=== PATIENT | male | born 1960 | race Caucasian/White ===

== ENCOUNTER 2018-04-02 12:21 | Outpatient (CLI) | payer OTHER | END 2018-04-02 23:59 | disposition home or self-care (01) | LOC: RAD 12:21 | PROVIDERS: ATTEND Family Medicine | DX: M50.323 Other cervical disc degeneration at C6-C7 level (principal) | CPT/HCPCS: 72141; 72146 ==

== ENCOUNTER 2018-04-08 02:49 | Outpatient (CLI) | payer OTHER | END 2018-04-08 23:59 | disposition home or self-care (01) | LOC: RAD 02:49 | PROVIDERS: ATTEND Family Medicine | DX: M50.323 Other cervical disc degeneration at C6-C7 level (principal); M77.8 Other enthesopathies, not elsewhere classified; M25.78 Osteophyte, vertebrae; I71.2 Thoracic aortic aneurysm, without rupture | CPT/HCPCS: 72040; 72070 ==

== ENCOUNTER 2018-04-22 23:23 | Emergency (ER) | payer OTHER ==
[~2018-04-22] VITALS: Ht 172.7 cm; Wt 60.5 kg
[2018-04-22 23:26] VITALS: BP 135/88
== END 2018-04-23 00:23 | disposition home or self-care (01) ==
LOC: ER 23:23
DX: R91.8 Other nonspecific abnormal finding of lung field (principal); J44.9 Chronic obstructive pulmonary disease, unspecified; G89.29 Other chronic pain; M19.90 Unspecified osteoarthritis, unspecified site
CPT/HCPCS: 71046; 99284

== ENCOUNTER → 2018-08-08 | Outpatient (CLI) | payer OTHER ==
[2018-08-08 21:05] LABS: ALANINE AMINOTRANSFERASE 39 U/L (12-78); ALBUMIN 4.2 G/DL (3.4-5.0); ALBUMIN/GLOBULIN RATIO 1.2 (1.1-1.5); ALKALINE PHOSPHATASE 70 IU/L (46-116); ANION GAP 7 (8-16); ASPARTATE AMINO TRANSFERASE 40 U/L (10-37); BILIRUBIN,TOTAL 0.7 MG/DL (0.1-1.0); BLOOD UREA NITROGEN 31 MG/DL (7-18); BUN/CREATININE RATIO 22.1 (5.4-32.0); CALCIUM 9.1 MG/DL (8.5-10.1); CHLORIDE 102 MMOL/L (99-107); GLUCOSE 107 MG/DL (70-104); SODIUM 136 MMOL/L (135-145); TOTAL CARBON DIOXIDE 26.8 MMOL/L (24-32); TOTAL PROTEIN 7.7 G/DL (6.4-8.2); eGFR 52 ML/MIN
[2018-08-08 21:07] LABS: BASOPHILS # (AUTO) 0.1 X10'3 (0-0.2); BASOPHILS % (AUTO) 1.1 % (0-1); EOSINOPHILS # (AUTO) 0.1 X10'3 (0-0.9); EOSINOPHILS % (AUTO) 1.2 % (0-6); HEMATOCRIT 43.8 % (42.0-52.0); HEMOGLOBIN 15.1 g/dl (14.0-17.9); LYMPHOCYTES # (AUTO) 1.4 X10'3 (1.1-4.8); LYMPHOCYTES % (AUTO) 20.6 % (21-51); MEAN CORPUSCULAR HEMOGLOBIN 32.9 PG (27.0-31.0); MEAN CORPUSCULAR HGB CONC 34.5 g/dL (33.0-36.5); MEAN CORPUSCULAR VOLUME 95.4 FL (78-98); MEAN PLATELET VOLUME 7.9 FL (7.4-10.4); MONOCYTES # (AUTO) 0.4 X10'3 (0-0.9); MONOCYTES % (AUTO) 5.6 % (2-12); NEUTROPHILS # (AUTO) 4.8 X10'3 (1.8-7.7); NEUTROPHILS % (AUTO) 71.5 % (42-75); PLATELET COUNT 257 X10'3 (140-440); RED BLOOD COUNT 4.59 X10'6 (4.70-6.10); RED CELL DISTRIBUTION WIDTH 12.2 % (11.5-14.5); WHITE BLOOD COUNT 6.6 X10'3 (4.5-11.0)
[2018-08-10 08:19] LABS: THYROXINE (T4) 4.5 ug/dL (4.5-12.0)
== END | disposition home or self-care (01) ==
LOC: RAD 02:14
PROVIDERS: ATTEND Family Medicine
DX: M19.90 Unspecified osteoarthritis, unspecified site (principal); Z96.643 Presence of artificial hip joint, bilateral
CPT/HCPCS: 36415; 73080; 80053; 84402; 84403; 84436; 84443; 85025

== ENCOUNTER 2018-09-11 10:23 | Outpatient (CLI) | payer OTHER | END 2018-09-11 23:59 | disposition home or self-care (01) | LOC: VAS 10:23 | PROVIDERS: ATTEND Family Medicine | DX: I73.9 Peripheral vascular disease, unspecified (principal); Z96.643 Presence of artificial hip joint, bilateral; Z72.89 Other problems related to lifestyle | CPT/HCPCS: 93978 ==

== ENCOUNTER 2018-09-30 08:39 | Outpatient (CLI) | payer OTHER | END 2018-09-30 23:59 | disposition home or self-care (01) | LOC: VAS 08:39 | PROVIDERS: ATTEND Family Medicine | DX: I70.291 Other atherosclerosis of native arteries of extremities, right leg (principal); Z87.828 Personal history of other (healed) physical injury and trauma | CPT/HCPCS: 93922; 93925 ==

== ENCOUNTER 2018-10-15 08:45 | Outpatient (CLI) | payer OTHER | END 2018-10-15 23:59 | disposition home or self-care (01) | LOC: RAD 08:45 | PROVIDERS: ATTEND Family Medicine | DX: M47.812 Spondylosis without myelopathy or radiculopathy, cervical region (principal); M48.02 Spinal stenosis, cervical region; M40.292 Other kyphosis, cervical region | CPT/HCPCS: 72141 ==

== ENCOUNTER 2018-10-30 16:15 | Outpatient (CLI) | payer OTHER ==
[2018-10-30 18:39] LABS: RHEUM FACTOR QUAL REFLEX TITER NEGATIVE (Neg)
== END 2018-10-30 23:59 | disposition home or self-care (01) ==
LOC: LAB 16:15
PROVIDERS: ATTEND Family Medicine
DX: M19.90 Unspecified osteoarthritis, unspecified site (principal)
CPT/HCPCS: 36415; 84550; 85651; 86038; 86430

== ENCOUNTER 2018-11-10 08:45 | Outpatient (CLI) | payer OTHER | END 2018-11-10 23:59 | disposition home or self-care (01) | LOC: RAD 08:45 | PROVIDERS: ATTEND Family Medicine | DX: M51.36 Other intervertebral disc degeneration, lumbar region (principal); M51.27 Other intervertebral disc displacement, lumbosacral region; M48.07 Spinal stenosis, lumbosacral region; M41.86 Other forms of scoliosis, lumbar region | CPT/HCPCS: 72148 ==

== ENCOUNTER 2018-11-12 07:27 | Outpatient (CLI) | payer OTHER | END 2018-11-12 23:59 | disposition home or self-care (01) | LOC: RAD 07:27 | PROVIDERS: ATTEND Family Medicine | DX: M50.323 Other cervical disc degeneration at C6-C7 level (principal) | CPT/HCPCS: 72040 ==

== ENCOUNTER 2018-11-20 12:57 | Outpatient (CLI) | payer OTHER | END 2018-11-20 23:59 | disposition home or self-care (01) | LOC: 64 CT 12:57 | PROVIDERS: ATTEND Orthopaedic Surgery Orthopaedic Surgery of the Spine | DX: M48.061 Spinal stenosis, lumbar region without neurogenic claudication (principal); M51.36 Other intervertebral disc degeneration, lumbar region; M54.5 Low back pain | CPT/HCPCS: 72131 ==

== ENCOUNTER 2019-01-09 14:02 | Outpatient (CLI) | payer OTHER ==
[2019-02-24] MEDS ORDERED: PRED10TA PO (17:10)
[2019-02-24] MEDS ORDERED: VITAMIN D PO (17:10)
[2019-02-24] MEDS ORDERED: TRAM50TA2 PO (17:10)
[2019-02-24] MEDS ORDERED: TRAZ-219 PO (17:10)
[2019-02-24] MEDS ORDERED: META-25 PO (17:10)
[2019-02-24] MEDS ORDERED: ALBU8.5H8 INH (17:10)
[2019-02-24] MEDS ORDERED: LEVO175T7 PO (17:10)
[2019-02-24] MEDS ORDERED: LYR75C PO (17:10)
[2019-02-24] MEDS ORDERED: NABU750T2 PO (17:10)
[2019-02-26] MEDS ORDERED: CHOL100046 PO (11:25)
[2019-02-26] MEDS ORDERED: ALPR1TAB7 PO (12:37)
== END 2019-01-09 23:59 | disposition home or self-care (01) ==
LOC: LAB 14:02
PROVIDERS: ATTEND Family Medicine
DX: M19.90 Unspecified osteoarthritis, unspecified site (principal)
CPT/HCPCS: 36415

== ENCOUNTER 2019-02-13 13:23 | Outpatient (CLI) | payer OTHER ==
[2019-02-13 14:12] LABS: CLARITY,URINE CLEAR (Clear); COLOR,URINE YELLOW (Yellow); GLUCOSE, URINE NEGATIVE (Neg); KETONES,URINE NEGATIVE (Neg); LEUKOCYTE ESTERASE ,URINE NEGATIVE (Neg); NITRITES, URINE NEGATIVE (Neg); OCCULT BLOOD,URINE NEGATIVE (Neg); PH,URINE 6.5 (4.8-8.0); PROTEIN,URINE NEGATIVE (Neg); UROBILINOGEN,URINE 0.2 E.U/dL (0.2-1.0)
[2019-02-13 14:16] LABS: BASOPHILS % (AUTO) 0.7 % (0-1); EOSINOPHILS # (AUTO) 0.1 X10'3 (0-0.9); HEMATOCRIT 39.4 % (42.0-52.0); HEMOGLOBIN 13.6 g/dl (14.0-17.9); LYMPHOCYTES # (AUTO) 1.5 X10'3 (1.1-4.8); LYMPHOCYTES % (AUTO) 20.8 % (21-51); MEAN CORPUSCULAR HEMOGLOBIN 34.5 PG (27.0-31.0); MEAN CORPUSCULAR HGB CONC 34.6 g/dL (33.0-36.5); MEAN CORPUSCULAR VOLUME 99.7 FL (78-98); MEAN PLATELET VOLUME 8.1 FL (7.4-10.4); MONOCYTES # (AUTO) 0.6 X10'3 (0-0.9); MONOCYTES % (AUTO) 8.4 % (2-12); NEUTROPHILS # (AUTO) 4.8 X10'3 (1.8-7.7); NEUTROPHILS % (AUTO) 69.1 % (42-75); PLATELET COUNT 247 X10'3 (140-440); RED BLOOD COUNT 3.96 X10'6 (4.70-6.10); RED CELL DISTRIBUTION WIDTH 12.9 % (11.5-14.5)
[2019-02-13 14:30] LABS: UA COLLECTION TYPE NON-SPECIFIED
[2019-02-13 14:43] LABS: ALANINE AMINOTRANSFERASE 33 U/L (12-78); ALBUMIN 3.9 G/DL (3.4-5.0); ALBUMIN/GLOBULIN RATIO 1.3 (1.1-1.5); ALKALINE PHOSPHATASE 42 IU/L (46-116); ANION GAP 8 (8-16); ASPARTATE AMINO TRANSFERASE 26 U/L (10-37); BILIRUBIN,TOTAL 0.5 MG/DL (0.1-1.0); BLOOD UREA NITROGEN 23 MG/DL (7-18); BUN/CREATININE RATIO 17.8 (5.4-32.0); CALCIUM 8.9 MG/DL (8.5-10.1); CHLORIDE 104 MMOL/L (99-107); CHOL/HDL RATIO 1.9 (0.00-4.99); CHOLESTEROL 179 MG/DL (0-200); CREATININE 1.29 MG/DL (0.60-1.10); GLUCOSE 87 MG/DL (70-104); HDL CHOLESTEROL 95 MG/DL (35-60); LDL CHOLESTEROL 81 MG/DL (50-100); POTASSIUM 3.8 MMOL/L (3.5-5.1); SODIUM 140 MMOL/L (135-145); TOTAL CARBON DIOXIDE 27.7 MMOL/L (24-32); TOTAL PROTEIN 6.9 G/DL (6.4-8.2); TRIGLYCERIDES 16 MG/DL (20-135); eGFR 57 ML/MIN
[2019-02-24] MEDS ORDERED: VITAMIN D PO (17:10)
[2019-02-24] MEDS ORDERED: NABU750T2 PO (17:10)
[2019-02-24] MEDS ORDERED: TRAM50TA2 PO (17:10)
[2019-02-24] MEDS ORDERED: LYR75C PO (17:10)
[2019-02-24] MEDS ORDERED: META-25 PO (17:10)
[2019-02-24] MEDS ORDERED: PRED10TA PO (17:10)
[2019-02-24] MEDS ORDERED: TRAZ-219 PO (17:10)
[2019-02-24] MEDS ORDERED: ALBU8.5H8 INH (17:10)
[2019-02-24] MEDS ORDERED: LEVO175T7 PO (17:10)
[2019-02-26] MEDS ORDERED: CHOL100046 PO (11:25)
[2019-02-26] MEDS ORDERED: ALPR1TAB7 PO (12:37)
== END 2019-02-13 23:59 | disposition home or self-care (01) ==
LOC: RAD 13:23
PROVIDERS: ATTEND Family Medicine
DX: Z01.818 Encounter for other preprocedural examination (principal); M81.0 Age-related osteoporosis without current pathological fracture; M47.814 Spondylosis without myelopathy or radiculopathy, thoracic region
CPT/HCPCS: 36415; 71046; 80053; 80061; 81003; 85025

== ENCOUNTER 2019-02-27 06:46 | Inpatient (IN) | payer OTHER ==
[2019-02-24 11:32] LABS: PRE OP PROTIME 10.9 SECONDS (9.0-12.0)
[2019-02-27] VITALS (16 sets, daily range): BP systolic 92–129; BP diastolic 64–91
[~2019-02-27] VITALS: Ht 170.2 cm; Wt 74.4 kg
[~2019-02-27 06:46] MED LIST: ALBU8.5H8 INH; ALPR1TAB7 PO; CHOL100046 PO; LEVO175T7 PO; LYR75C PO; META-25 PO; NABU750T2 PO; PRED10TA PO; TRAM50TA2 PO; TRAZ-219 PO; Thrombin (Bovine) 5,000 unit vial TP ONE; VANCOMYCIN INJ 1000 MG in NORMAL SALINE 250ml IV.SOLN IV ONE; albuterol 2.5 MG/3 ML nebule NEB ONE; ceFAZolin 1000mg inj ONE; cefazolin/dext.iso 2gm/100 ML IV ONE; famotidine 20mg tablet PO ONE; gelatin sponge, absorbable (Gelfoam-100 compressed) sponge TP ONE; heparin 10,000 units/1 ML INJ ONE; ringers solution, lacted 1,000 ML IV SCH
[2019-02-27] MEDS ORDERED: methylene blue (5mg/ml) 50mg/10ml ampul IV ONE (07:07)
[2019-02-27] MEDS ORDERED: LIDOcaine 1% (10mg/ml) 2ml vial ONE (07:27)
[2019-02-27] MEDS ORDERED: ALPR-624 PO (07:38)
[2019-02-27] MEDS ORDERED: gelatin sponge, absorbable (Gelfoam 100) sponge TP ONE (08:12)
[2019-02-27] MEDS ORDERED: sevoflurane 250ml liquid IH ONE (08:32)
[2019-02-27] MEDS ORDERED: fentaNYL /PF 50mcg/ml 5ml ampule ONE ×2 (08:45)
[2019-02-27] MEDS ORDERED: MIDAZolam 5mg/5ml vial ONE (08:45)
[2019-02-27] MEDS ORDERED: dexamethasone sod phosphate 4mg/ml inj. ONE (09:13)
[2019-02-27] MEDS ORDERED: propofol inj 20 ML IV ONE (09:13)
[2019-02-27] MEDS ORDERED: LIDOcaine 2% (20mg/ml) 5ml vial ONE (09:13)
[2019-02-27] MEDS ORDERED: ondansetron/PF 4mg/2ml inj ONE (09:26)
[2019-02-27] MEDS ORDERED: rocuronium 10mg/ml inj IV ONE (09:38)
[2019-02-27] MEDS ORDERED: ringers solution, lacted 1,000 ML IV SCH (10:01)
[2019-02-27] MEDS ORDERED: proCHLORperazine 10 MG/2 ml inj IV PRN (10:05)
[2019-02-27] MEDS ORDERED: morphine 4 MG/ML inj SYRINge IV PRN (10:05)
[2019-02-27] MEDS ORDERED: ondansetron/PF 4mg/2ml inj IV PRN ×2 (10:05→15:55)
[2019-02-27] MEDS ORDERED: meperidine/PF 25mg/ml syringe IV PRN ×3 (10:05)
[2019-02-27] MEDS ORDERED: ceFAZolin 1000mg inj ONE (13:01)
[2019-02-27] MEDS ORDERED: meperidine/PF 50mg/ml syringe ONE (13:01)
[2019-02-27] MEDS: ceFAZolin 1000mg inj ONE ×2 (14:27→14:28)
[2019-02-27] MEDS ORDERED: pancuronium br 1mg/ml inj IV ONE (15:06)
[2019-02-27] MEDS ORDERED: acetaminophen 1,000mg/100ml IV 100 ML IV ONE (15:06)
[2019-02-27] MEDS ORDERED: non-formulary drug (Alprazolam 1 MG) PO PRN (15:45)
[2019-02-27] MEDS ORDERED: prednisone 10mg tablet PO PRN (15:45)
--- NOTE | 2019-02-27 15:50 | NUR ---
ADMITTED TO PACU FROM OR ACCOMPANIED BY ANESTHESIA. INTIAL PHYSICAL ASSESSMENT DONE AND RECORDED. AWAKE AND RESPONSE ON ARRIVE YO PACU, REPORT RECEIVED FROM ANESTHESIA.
[2019-02-27] MEDS ORDERED: naloxone 0.4 mg/ml inj IV PRN (15:55)
[2019-02-27] MEDS ORDERED: mag hydrox/Alum hydrox/simeth 30ml oral suspension PO PRN (15:55)
[2019-02-27] MEDS ORDERED: CADD PCA waste documentation MC PRN (15:55)
[2019-02-27] MEDS ORDERED: temazepam 15mg capsule PO PRN (15:55)
[2019-02-27] MEDS ORDERED: diphenhydrAMINE 50 mg/ml inj IV PRN (15:55)
[2019-02-27] MEDS ORDERED: oxyCODONE/APAP 10/325mg tablet PO PRN (15:55)
[2019-02-27] MEDS ORDERED: albuterol 2.5 MG/3 ML nebule NEB PRN ×2 (15:55→16:15)
[2019-02-27] MEDS ORDERED: bisacodyl 10mg suppository rectal RC PRN (15:55)
[2019-02-27] MEDS ORDERED: simethicone 125mg capsule PO PRN (15:55)
[2019-02-27] MEDS ORDERED: metoclopramide 5 mg/ml inj IV PRN (15:55)
[2019-02-27] MEDS ORDERED: magnesium hydroxide 30ml (MOM) UD suspension PO PRN (15:55)
[2019-02-27] MEDS: morphine 4 MG/ML inj SYRINge IV PRN ×2 (16:00→16:10)
--- NOTE | 2019-02-27 16:00 | NUR ---
MEDICATED FOR COMPLAINTS OF PAIN, ALSO COMPLAINING OF DECREASED MOTION LEFT LEG. DR. SEXTON NOTIFIED. DR SEXTON AT BEDSIDE TO EXAMINE. PORTABLE AP PELVIS COMPLETED, DR. SEXTON REVIEWED. NO ORDERS, BELIEVES DECREASED MOTION DUE TO POSITIONING.
[2019-02-27] MEDS: HYDROmorphone/NS 1 mg/ml CADD 50 ML IV SCH ×4 (16:42→23:00)
[2019-02-27] MEDS ORDERED: HYDROmorphone/NS 1 mg/ml CADD 50 ML IV SCH ×2 (17:00)
--- NOTE | 2019-02-27 17:00 | NUR ---
PACU DISCHARGE CRITERIA MET, REPORT GIVEN TO FLOOR. DENIES PAIN OR DISCOMFORT, TRANSFERRED TO ROOM IN STABLE GOOD CONDITION.
--- NOTE | 2019-02-27 17:30 | NUR ---
I called Dr. Olvera for eye drops for patient, Dr Olvera also ordered IV and po valium 5 mg q4hr for spasms, and aqua tears.
[2019-02-27] MEDS ORDERED: diazepam inj 5 MG/ML inj. IV PRN (17:40)
[2019-02-27] MEDS: normal saline 1000ml 1,000 ML IV SCH (17:59)
[2019-02-27] MEDS: polyvinyl alcohol ophthalmic drops 15ml bottle EACHEYE PRN ×2 (17:59→20:55)
[2019-02-27] MEDS: ceFAZolin 1GM/D5W- ADD-VANTAGE 50 ML IV SCH ×2 (18:09→23:48)
--- NOTE | 2019-02-27 18:20 | NUR ---
I called Dr. Olvera to report patient having numbness on the right top of his head, I told him patient doesn't have any other neuro deficits other than the left leg weakness which was previously noted by Dr. Olvera after surgery. Dr. Olvera said cont/ to monitor head numbness and neuro checks and he thinks the numbness will resolve.
--- NOTE | 2019-02-27 18:55 | NUR ---
patient report given to Garcia AYALA
--- NOTE | 2019-02-27 19:00 | NUR ---
Patient in room ORTHO 4016. I have received report from Jenniffer AYALA and had the opportunity to ask questions and assume patient care.
[2019-02-27] MEDS: vancomycin/NS 1 GM ADD-VANTAGE 250 ML IV SCH (20:49)
[2019-02-27] MEDS: pregabalin 75mg capsule PO SCH (20:49)
[2019-02-27] MEDS ORDERED: traZODone 50mg tablet PO PRN (21:00)
[2019-02-27] MEDS: diazepam 5mg tablet PO PRN (21:48)
[2019-02-27] MEDS: cyclobenzaprine 10mg tablet PO PRN (21:51)
--- NOTE | 2019-02-27 22:00 | NUR ---
PT has been complaining of numbness on the top of his head and and a sore lesion near the right buccal area inside of his mouth. I informed him that is was probably due to the prone positioning during his 8 hours of surgery.
[2019-02-28] VITALS (7 sets, daily range): BP systolic 93–128; BP diastolic 46–73
[2019-02-28] MEDS: docusate sod 100mg capsule PO SCH ×2 (00:13→07:18)
[2019-02-28] MEDS: ALPRAZolam 0.5mg tablet PO PRN ×2 (00:26→19:07)
[2019-02-28] MEDS: HYDROmorphone/NS 1 mg/ml CADD 50 ML IV SCH ×12 (01:00→23:00)
--- NOTE | 2019-02-28 01:55 | NUR ---
PT is concerned that the numbness on top of his head, soreness on the inside of his cheek was not getting better. he fears that he may have been dropped. he can now lift his left leg.
[2019-02-28] MEDS: acetaminophen 325mg tablet PO PRN ×3 (02:27→23:07)
--- NOTE | 2019-02-28 06:00 | NUR ---
Patient in room ORTHO 4016. I have received report from ESTELA AYALA and had the opportunity to ask questions and assume patient care.
[2019-02-28] MEDS: normal saline 1000ml 1,000 ML IV SCH ×2 (06:59→12:02)
[2019-02-28] MEDS: pregabalin 75mg capsule PO SCH ×2 (07:18→20:00)
[2019-02-28] MEDS: levoTHYROXINE 175mcg tablet PO SCH (07:18)
[2019-02-28] MEDS: vitamin D (cholecalciferol) 1,000 unit tablet PO SCH (07:19)
[2019-02-28] MEDS: vancomycin/NS 1 GM ADD-VANTAGE 250 ML IV SCH (07:19)
[2019-02-28] MEDS: cyclobenzaprine 10mg tablet PO PRN ×2 (07:31→17:39)
[2019-02-28 07:34] LABS: BASOPHILS % (AUTO) 0.4 % (0-1); EOSINOPHILS % (AUTO) 0.3 % (0-6); HEMATOCRIT 34.8 % (42.0-52.0); HEMOGLOBIN 11.8 g/dl (14.0-17.9); LYMPHOCYTES # (AUTO) 1.9 X10'3 (1.1-4.8); LYMPHOCYTES % (AUTO) 18.7 % (21-51); MEAN CORPUSCULAR HEMOGLOBIN 34.2 PG (27.0-31.0); MEAN CORPUSCULAR VOLUME 100.7 FL (78-98); MEAN PLATELET VOLUME 8.2 FL (7.4-10.4); MONOCYTES # (AUTO) 1.3 X10'3 (0-0.9); MONOCYTES % (AUTO) 12.9 % (2-12); NEUTROPHILS % (AUTO) 67.7 % (42-75); PLATELET COUNT 210 X10'3 (140-440); RED BLOOD COUNT 3.46 X10'6 (4.70-6.10); RED CELL DISTRIBUTION WIDTH 12.9 % (11.5-14.5); WHITE BLOOD COUNT 10.3 X10'3 (4.5-11.0)
[2019-02-28 07:39] LABS: ANION GAP 7 (8-16); CHLORIDE 106 MMOL/L (99-107); POTASSIUM 3.9 MMOL/L (3.5-5.1); SODIUM 140 MMOL/L (135-145); TOTAL CARBON DIOXIDE 26.8 MMOL/L (24-32)
[2019-02-28] MEDS ORDERED: Chloraseptic (Phenol) Spray 177ml MM PRN (10:35)
[2019-02-28] MEDS: docusate sod 100mg capsule PO PRN ×3 (11:02→22:54)
[2019-02-28] MEDS: bisacodyl 5mg tablet.DR PO PRN (11:02)
--- NOTE | 2019-02-28 12:05 | NUR ---
Pt s/p spinal fusion surgery PO 100% regular diet receiving double portions TIDWM meeting needs. LBM 02/27. No nutrition concnerns at this time. Addendum: 02/28/19 at [address] Amended: Links added.
[2019-02-28] MEDS: diazepam 5mg tablet PO PRN ×2 (14:11→22:56)
--- NOTE | 2019-02-28 18:05 | NUR ---
Problems reprioritized. Patient report given, questions answered & plan of care reviewed with ESTELA AYALA.
--- NOTE | 2019-02-28 19:00 | NUR ---
Patient in room ORTHO 4016. I have received report from Palma AYALA and had the opportunity to ask questions and assume patient care.
[2019-02-28] MEDS ORDERED: magnesium citrate 296ml oral solution PO ONE (19:30)
--- NOTE | 2019-03-01 06:29 | NUR ---
RECEIVED REPORT FROM ESTELA AYALA
[2019-03-01] MEDS: pregabalin 75mg capsule PO SCH (07:54)
[2019-03-01] MEDS: levoTHYROXINE 175mcg tablet PO SCH (07:55)
[2019-03-01] MEDS: vitamin D (cholecalciferol) 1,000 unit tablet PO SCH (07:55)
[2019-03-01] MEDS: bisacodyl 5mg tablet.DR PO PRN (07:55)
[2019-03-01] MEDS: docusate sod 100mg capsule PO PRN (07:55)
[2019-03-01] MEDS: cyclobenzaprine 10mg tablet PO PRN (07:59)
--- NOTE | 2019-03-01 09:13 | NUR ---
PATIENT WAS DISCHARGED IV AND LUIS DRAIN WERE TAKEN OUT. PATEINT WAS ALERT AND ORIENTED AT TIME OF DISCHARGE. PATIENT WAS GIVEN PRESCRIPTION OF PERCOCET TO TAKE WITH HIM AND GET REFILLED. pATEINT ALSO RECEIVED A WALKER THAT WAS BROUGHT TO HIM BY CASE MANAGEMENT.
== END 2019-03-01 09:03 | disposition home health service (06) | DRG 458 ==
LOC: PAS IN 06:46 → EEVIPCON 12:30 → EDSTATUS 12:30 → ORTHO 4S 17:19
PROVIDERS: ADMIT Orthopaedic Surgery Orthopaedic Surgery of the Spine; ATTEND Orthopaedic Surgery Orthopaedic Surgery of the Spine
PROC: 0SG30AJ Fusion of Lumbosacral Joint with Interbody Fusion Device, Posterior Approach, Anterior Column, Open Approach (ICD-10-PCS; 2019-02-27)
PROC: 0SG10AJ Fusion of 2 or more Lumbar Vertebral Joints with Interbody Fusion Device, Posterior Approach, Anterior Column, Open Approach (ICD-10-PCS; 2019-02-27)
PROC: 0SB40ZZ Excision of Lumbosacral Disc, Open Approach (ICD-10-PCS; principal; 2019-02-27 08:32)
DX: M51.17 Intervertebral disc disorders with radiculopathy, lumbosacral region (principal); M41.56 Other secondary scoliosis, lumbar region; E03.9 Hypothyroidism, unspecified; F43.10 Post-traumatic stress disorder, unspecified; F41.9 Anxiety disorder, unspecified; J45.909 Unspecified asthma, uncomplicated; Z88.8 Allergy status to other drugs, medicaments and biological substances
CPT/HCPCS: Z7506; Z7508; 36415; 72100; 72170; 76000; 80051; 82948; 84443; 85025; 85610; 85730; 86885; 86900; 86901; 87081; 94760; 97116; 97161; 97530; A4215; A4618; A7000; C1713; C1758; G0378; J0131; J0690; J1100; J1170; J1644; J2001; J2175; J2250; J2270; J2405; J2704; J3010; J3360; J3370; J7030; J7040; J7120; J7512; Q9968

== ENCOUNTER 2019-03-03 08:23 | Emergency (ER) | payer OTHER ==
[~2019-03-03] VITALS: Ht 172.7 cm; Wt 79.1 kg
[~2019-03-03 08:23] MED LIST changes: +ALPR-624 PO; -NABU750T2 PO; -TRAM50TA2 PO; -Thrombin (Bovine) 5,000 unit vial TP ONE; -VANCOMYCIN INJ 1000 MG in NORMAL SALINE 250ml IV.SOLN IV ONE; -albuterol 2.5 MG/3 ML nebule NEB ONE; -ceFAZolin 1000mg inj ONE; -cefazolin/dext.iso 2gm/100 ML IV ONE; -famotidine 20mg tablet PO ONE; -gelatin sponge, absorbable (Gelfoam-100 compressed) sponge TP ONE; -heparin 10,000 units/1 ML INJ ONE; -ringers solution, lacted 1,000 ML IV SCH
[2019-03-03 08:27] VITALS: BP 131/83
== END 2019-03-03 08:56 | disposition home or self-care (01) ==
LOC: ER 08:24
DX: T81.89XA Other complications of procedures, not elsewhere classified, initial encounter (principal); L08.89 Other specified local infections of the skin and subcutaneous tissue; G89.29 Other chronic pain; M19.90 Unspecified osteoarthritis, unspecified site; Z98.890 Other specified postprocedural states; Z79.899 Other long term (current) drug therapy; Y83.9 Surgical procedure, unspecified as the cause of abnormal reaction of the patient, or of later complication, without mention of misadventure at the time of the procedure; Y92.89 Other specified places as the place of occurrence of the external cause
CPT/HCPCS: 99281; 99282

== ENCOUNTER 2019-04-13 09:06 | Outpatient (CLI) | payer OTHER | END 2019-04-13 23:59 | disposition home or self-care (01) | LOC: RAD 09:06 | PROVIDERS: ATTEND Orthopaedic Surgery Orthopaedic Surgery of the Spine | DX: M48.56XA Collapsed vertebra, not elsewhere classified, lumbar region, initial encounter for fracture (principal); M53.86 Other specified dorsopathies, lumbar region; J45.909 Unspecified asthma, uncomplicated; Z98.1 Arthrodesis status | CPT/HCPCS: 72100 ==

== ENCOUNTER 2019-05-06 13:32 | Outpatient (CLI) | payer OTHER ==
[2019-05-06 14:22] LABS: BASOPHILS # (AUTO) 0.1 X10'3 (0-0.2); BASOPHILS % (AUTO) 1.2 % (0-1); EOSINOPHILS # (AUTO) 0.1 X10'3 (0-0.9); EOSINOPHILS % (AUTO) 2.1 % (0-6); HEMATOCRIT 41.3 % (42.0-52.0); HEMOGLOBIN 14.3 g/dl (14.0-17.9); LYMPHOCYTES # (AUTO) 1.6 X10'3 (1.1-4.8); LYMPHOCYTES % (AUTO) 29.4 % (21-51); MEAN CORPUSCULAR HGB CONC 34.7 g/dL (33.0-36.5); MEAN CORPUSCULAR VOLUME 98.1 FL (78-98); MEAN PLATELET VOLUME 7.8 FL (7.4-10.4); MONOCYTES # (AUTO) 0.6 X10'3 (0-0.9); MONOCYTES % (AUTO) 9.9 % (2-12); NEUTROPHILS # (AUTO) 3.2 X10'3 (1.8-7.7); NEUTROPHILS % (AUTO) 57.4 % (42-75); PLATELET COUNT 230 X10'3 (140-440); RED BLOOD COUNT 4.21 X10'6 (4.70-6.10); RED CELL DISTRIBUTION WIDTH 12.1 % (11.5-14.5); WHITE BLOOD COUNT 5.6 X10'3 (4.5-11.0)
[2019-05-06 14:31] LABS: CLARITY,URINE CLEAR (Clear); COLOR,URINE YELLOW (Yellow); GLUCOSE, URINE NEGATIVE (Neg); KETONES,URINE NEGATIVE (Neg); LEUKOCYTE ESTERASE ,URINE NEGATIVE (Neg); NITRITES, URINE NEGATIVE (Neg); OCCULT BLOOD,URINE NEGATIVE (Neg); PROTEIN,URINE NEGATIVE (Neg); UROBILINOGEN,URINE 0.2 E.U/dL (0.2-1.0)
[2019-05-06 14:35] LABS: ALANINE AMINOTRANSFERASE 28 U/L (12-78); ALBUMIN 3.8 G/DL (3.4-5.0); ALBUMIN/GLOBULIN RATIO 1.2 (1.1-1.5); ALKALINE PHOSPHATASE 70 IU/L (46-116); ANION GAP 6 (8-16); ASPARTATE AMINO TRANSFERASE 31 U/L (10-37); BILIRUBIN,TOTAL 0.3 MG/DL (0.1-1.0); BLOOD UREA NITROGEN 21 MG/DL (7-18); BUN/CREATININE RATIO 17.2 (5.4-32.0); CALCIUM 8.9 MG/DL (8.5-10.1); CHLORIDE 103 MMOL/L (99-107); CREATININE 1.22 MG/DL (0.60-1.10); GLUCOSE 98 MG/DL (70-104); POTASSIUM 4.1 MMOL/L (3.5-5.1); SODIUM 139 MMOL/L (135-145); TOTAL CARBON DIOXIDE 29.6 MMOL/L (24-32); eGFR 61 ML/MIN
[2019-05-06 14:36] LABS: UA COLLECTION TYPE VOIDED
== END 2019-05-06 23:59 | disposition home or self-care (01) ==
LOC: LAB 13:32
PROVIDERS: ATTEND Family Medicine
DX: R39.15 Urgency of urination (principal); J45.909 Unspecified asthma, uncomplicated
CPT/HCPCS: 36415; 80053; 81003; 84153; 85025

== ENCOUNTER 2019-07-23 09:14 | Outpatient (CLI) | payer OTHER ==
[~2019-07-23 09:14] MED LIST changes: -TRAZ-219 PO; +TRAZ-256 PO
== END 2019-07-23 23:59 | disposition home or self-care (01) ==
LOC: RAD 09:14
PROVIDERS: ATTEND Family Medicine
DX: M19.042 Primary osteoarthritis, left hand (principal); M19.041 Primary osteoarthritis, right hand; M25.562 Pain in left knee; M54.2 Cervicalgia
CPT/HCPCS: 72050; 73120; 73560

== ENCOUNTER 2019-07-23 09:18 | Outpatient (CLI) | payer OTHER | END 2019-07-23 23:59 | disposition home or self-care (01) | LOC: RAD 09:18 | PROVIDERS: ATTEND Orthopaedic Surgery Orthopaedic Surgery of the Spine | DX: Z98.1 Arthrodesis status (principal) | CPT/HCPCS: 72100 ==

== ENCOUNTER 2019-10-09 14:38 | Emergency (ER) | payer OTHER ==
[~2019-10-09] VITALS: Ht 170.2 cm; Wt 75.0 kg
[2019-10-09 14:40] VITALS: BP 133/84
== END 2019-10-09 16:15 | disposition home or self-care (01) ==
LOC: ER 14:39 → EEVIPCON 14:39 → ER 16:15
DX: M79.642 Pain in left hand (principal); G89.29 Other chronic pain; Z72.89 Other problems related to lifestyle; Z98.890 Other specified postprocedural states; Z79.899 Other long term (current) drug therapy
CPT/HCPCS: 29130; 73130; 99283

== ENCOUNTER 2020-01-27 06:21 | Outpatient (CLI) | payer BC | END 2020-01-27 23:59 | disposition home or self-care (01) | LOC: RAD 06:21 | PROVIDERS: ATTEND Nurse Practitioner Family | DX: M43.27 Fusion of spine, lumbosacral region (principal); M41.84 Other forms of scoliosis, thoracic region; I87.8 Other specified disorders of veins | CPT/HCPCS: 72074; 72110 ==

== ENCOUNTER → 2020-03-16 | Outpatient (CLI) | payer BC | END | disposition home or self-care (01) | LOC: RAD 08:38 | PROVIDERS: ATTEND Family Medicine | DX: M47.812 Spondylosis without myelopathy or radiculopathy, cervical region (principal); M48.02 Spinal stenosis, cervical region; M43.12 Spondylolisthesis, cervical region | CPT/HCPCS: 72141 ==

== ENCOUNTER 2020-04-11 11:38 | Outpatient (CLI) | payer BC ==
[~2020-04-11 11:38] MED LIST changes: -ALPR-624 PO
== END 2020-04-11 23:59 | disposition home or self-care (01) ==
LOC: RAD 11:38 → EEVIPCON 12:00 → RAD 23:59
PROVIDERS: ATTEND Family Medicine
DX: M54.5 Low back pain (principal)
CPT/HCPCS: 72148

== ENCOUNTER 2020-06-06 05:52 | Day surgery (SDC) | payer BC ==
[2020-05-30 14:47] LABS: BASOPHILS # (AUTO) 0.1 X10'3 (0-0.2); BASOPHILS % (AUTO) 0.8 % (0-1); EOSINOPHILS # (AUTO) 0.2 X10'3 (0-0.9); EOSINOPHILS % (AUTO) 2.6 % (0-6); LYMPHOCYTES # (AUTO) 2.5 X10'3 (1.1-4.8); LYMPHOCYTES % (AUTO) 28.1 % (21-51); MEAN CORPUSCULAR HEMOGLOBIN 33.5 PG (27.0-31.0); MEAN CORPUSCULAR HGB CONC 33.9 g/dL (33.0-36.5); MEAN CORPUSCULAR VOLUME 98.7 FL (78-98); MEAN PLATELET VOLUME 8.2 FL (7.4-10.4); MONOCYTES # (AUTO) 0.8 X10'3 (0-0.9); MONOCYTES % (AUTO) 9.1 % (2-12); NEUTROPHILS # (AUTO) 5.2 X10'3 (1.8-7.7); NEUTROPHILS % (AUTO) 59.4 % (42-75); PRE OP HEMATOCRIT 43.3 % (42.0-52.0); PRE OP HEMOGLOBIN 14.7 g/dL (14.0-17.9); PRE OP PLATELET COUNT 250 X10'3 (140-440); RED BLOOD COUNT 4.39 X10'6 (4.70-6.10)
[2020-05-30 15:06] LABS: ALBUMIN 3.8 G/DL (3.4-5.0); ALBUMIN/GLOBULIN RATIO 1.2 (1.1-1.5); ALKALINE PHOSPHATASE 48 IU/L (46-116); BLOOD UREA NITROGEN 27 MG/DL (7-18); BUN/CREATININE RATIO 20.6 (5.4-32.0); CALCIUM 8.6 MG/DL (8.5-10.1); CHLORIDE 105 MMOL/L (99-107); CREATININE 1.31 MG/DL (0.60-1.10); PRE OP ALT 35 U/L (30-65); PRE OP ANION GAP 7 (8-16); PRE OP AST 36 U/L (10-37); PRE OP BILIRUB, TOTAL 0.4 MG/DL (0.0-1.0); PRE OP GLUCOSE 148 MG/DL (70-104); PRE OP SODIUM 141 MMOL/L (135-145); TOTAL CARBON DIOXIDE 28.8 MMOL/L (24-32); eGFR 56 ML/MIN
[2020-05-30 15:16] LABS: PRE OP POTASSIUM 3.3 MMOL/L (3.4-5.1)
[~2020-06-06] VITALS: Ht 170.2 cm; Wt 76.2 kg
[~2020-06-06 05:52] MED LIST changes: -ALBU8.5H8 INH; -ALPR1TAB7 PO; -CHOL100046 PO; -LYR75C PO; -META-25 PO; +TRAM50TA2 PO; +ZOLP10TA PO; +[UNRECOGNIZED DRUG - CODE] PO; +ceFAZolin 1,000 MG in NS 50ML IVPB IV ONE; +famotidine 20mg tablet PO ONE; +ringers solution, lacted 1,000 ML IV SCH
[2020-06-06 06:00] VITALS: BP 120/81
[2020-06-06] MEDS ORDERED: LIDOcaine 1% (10mg/ml) 2ml vial ONE (06:45)
[2020-06-06] MEDS ORDERED: BUPIVAcaine/PF 2.5 mg/ml (0.25%) 30ml vial ONE (06:45)
[2020-06-06] MEDS ORDERED: LIDOcaine 0.5% (5mg/ml) 50ml vial ONE (07:18)
[2020-06-06] MEDS ORDERED: fentaNYL/PF 50MCG/1 ML 2ML syringe ONE (07:21)
[2020-06-06] MEDS ORDERED: MIDAZolam 5mg/5ml vial ONE (07:24)
[2020-06-06] MEDS ORDERED: propofol inj 20 ML IV ONE ×2 (07:37)
[2020-06-06] MEDS ORDERED: morphine 4 MG/ML inj SYRINge IV PRN (08:00)
[2020-06-06] MEDS ORDERED: proCHLORperazine 10 MG/2 ml inj IV PRN (08:00)
[2020-06-06] MEDS ORDERED: morphine 2 MG/ML inj. syringe IV PRN (08:00)
[2020-06-06] MEDS ORDERED: ringers solution, lacted 1,000 ML IV SCH (08:00)
[2020-06-06] MEDS ORDERED: meperidine/PF 25mg/ml syringe IV PRN ×3 (08:00)
[2020-06-06] MEDS ORDERED: ondansetron/PF 4mg/2ml inj IV PRN (08:00)
[2020-06-06 08:05] VITALS: BP 147/99
--- NOTE | 2020-06-06 08:05 | NUR ---
Received from OR via BED, accompanied by Anesthesiologist DR ANGEL and report given by Anesthesiolgist. PATIENT A&OX4, DENIES PAIN, V/S WNL, NEUROVASCULAR CHECKS INTACT, 20G PIV RUE, SCD ON, DRESSING TO LEFT WRIST CDI ELEVATED WITH ICEBAG APPLIED.
[2020-06-06 08:15] VITALS: BP 152/94
[2020-06-06 08:25] VITALS: BP 143/86
--- NOTE | 2020-06-06 08:28 | NUR ---
PATIENT IS TAKING TRAMADOL BUT IS ASKING FOR SOMETHING STRONGER FOR HIS WRIST PAIN TO TAKE AT HOME BECAUSE HE STATES HIS TRAMADOL WILL ONLY HELP HIS BACK PAIN BUT NOT HIS WRIST PAIN BECAUSE HE HAS A BUILT UP TOLERANCE. I TOLD HIM I WILL TALK WITH DR SANCHEZ CONCERNING HIS REQUEST BUT CANNOT MAKE ANY PROMISES THAT HE WILL ORDER ANYTHING STRONGER FOR HIM. PATIENT AGREES TO THIS COURSE OF ACTION.
[2020-06-06 08:35] VITALS: BP 149/83
[2020-06-06 08:45] VITALS: BP 142/83
--- NOTE | 2020-06-06 08:45 | NUR ---
PATIENT A&OX4, DENIES PAIN, V/S WNL, NEUROVASCULAR CHECKS INTACT, 20G PIV RUE D/C, SCD OFF, DRESSING TO LEFT WRIST CDI ELEVATED WITH ICEBAG APPLIED. I HAVE REVIEWED D/C INSTRUCTIONS WITH PATIENT AND FAMILY AND THEY HAVE VERBALIZED UNDERSTANDING. PATIENT IS ALREADY ON TRAMADOL AND NORCO ACCORDING TO PATIENT AFTER DISCUSSING HIS MED LIST. DR SANCHEZ IS AWARE OF THIS AND IS NOT WILLING TO PRESCRIBE ANYTHING STRONGER. PATIENT HAS BEEN NOTIFIED. PATIENT D/C HOME WITH ALL BELONGINGS AND FAMILY GAVE TRANSPORT HOMER
== END 2020-06-06 08:45 | disposition home or self-care (01) ==
LOC: PAS 05:52
PROVIDERS: ATTEND Orthopaedic Surgery Hand Surgery
DX: S63.657A Sprain of metacarpophalangeal joint of left little finger, initial encounter (principal); M18.12 Unilateral primary osteoarthritis of first carpometacarpal joint, left hand; J45.909 Unspecified asthma, uncomplicated; X58.XXXA Exposure to other specified factors, initial encounter; Y93.89 Activity, other specified; Y92.89 Other specified places as the place of occurrence of the external cause; Y99.8 Other external cause status; Z79.899 Other long term (current) drug therapy; Z98.890 Other specified postprocedural states; Z96.643 Presence of artificial hip joint, bilateral; Z20.828 Contact with and (suspected) exposure to other viral communicable diseases
CPT/HCPCS: 26437; 26540; 36415; 80053; 82948; 85025; 87635; 93005; J0690; J2001; J2175; J2250; J2704; J3010; J3490; J7120; A4215; A4618; A7000

== ENCOUNTER 2020-07-04 11:00 | Outpatient (CLI) | payer BC ==
[~2020-07-04 11:00] MED LIST changes: -ceFAZolin 1,000 MG in NS 50ML IVPB IV ONE; -famotidine 20mg tablet PO ONE; -ringers solution, lacted 1,000 ML IV SCH
== END 2020-07-04 23:59 | disposition home or self-care (01) ==
LOC: 64 CT 11:00
PROVIDERS: ATTEND Orthopaedic Surgery
DX: M51.36 Other intervertebral disc degeneration, lumbar region (principal); M43.26 Fusion of spine, lumbar region; M54.2 Cervicalgia; G89.29 Other chronic pain; M79.7 Fibromyalgia; Z72.0 Tobacco use
CPT/HCPCS: 72131

== ENCOUNTER 2020-09-22 16:07 | Outpatient (CLI) | payer BC ==
[2020-09-22 16:47] LABS: CLARITY,URINE CLEAR (Clear); COLOR,URINE YELLOW (Yellow); GLUCOSE, URINE NEGATIVE (Neg); KETONES,URINE TRACE mg/dl (Neg); LEUKOCYTE ESTERASE ,URINE NEGATIVE (Neg); NITRITES, URINE NEGATIVE (Neg); OCCULT BLOOD,URINE NEGATIVE (Neg); PROTEIN,URINE NEGATIVE (Neg); UROBILINOGEN,URINE 0.2 E.U/dL (0.2-1.0)
[2020-09-22 16:49] LABS: BASOPHILS # (AUTO) 0.1 X10'3 (0-0.2); BASOPHILS % (AUTO) 1.1 % (0-1); EOSINOPHILS # (AUTO) 0.2 X10'3 (0-0.9); EOSINOPHILS % (AUTO) 2.9 % (0-6); HEMATOCRIT 41.9 % (42.0-52.0); HEMOGLOBIN 14.1 g/dl (14.0-17.9); LYMPHOCYTES # (AUTO) 1.6 X10'3 (1.1-4.8); LYMPHOCYTES % (AUTO) 25.3 % (21-51); MEAN CORPUSCULAR HEMOGLOBIN 33.4 PG (27.0-31.0); MEAN CORPUSCULAR HGB CONC 33.5 g/dL (33.0-36.5); MEAN CORPUSCULAR VOLUME 99.5 FL (78-98); MEAN PLATELET VOLUME 8.2 FL (7.4-10.4); MONOCYTES # (AUTO) 0.7 X10'3 (0-0.9); MONOCYTES % (AUTO) 10.9 % (2-12); NEUTROPHILS # (AUTO) 3.9 X10'3 (1.8-7.7); NEUTROPHILS % (AUTO) 59.8 % (42-75); PLATELET COUNT 253 X10'3 (140-440); RED BLOOD COUNT 4.21 X10'6 (4.70-6.10); RED CELL DISTRIBUTION WIDTH 12.8 % (11.5-14.5); WHITE BLOOD COUNT 6.5 X10'3 (4.5-11.0)
[2020-09-22 16:59] LABS: UA COLLECTION TYPE VOIDED
[2020-09-22 17:04] LABS: ALANINE AMINOTRANSFERASE 38 U/L (12-78); ALBUMIN 3.7 G/DL (3.4-5.0); ALBUMIN/GLOBULIN RATIO 1.2 (1.1-1.5); ALKALINE PHOSPHATASE 47 IU/L (46-116); ANION GAP 10 (8-16); ASPARTATE AMINO TRANSFERASE 41 U/L (10-37); BILIRUBIN,TOTAL 0.4 MG/DL (0.1-1.0); BLOOD UREA NITROGEN 28 MG/DL (7-18); CALCIUM 8.5 MG/DL (8.5-10.1); CHLORIDE 107 MMOL/L (99-107); CREATININE 1.65 MG/DL (0.60-1.10); GLUCOSE 96 MG/DL (70-104); POTASSIUM 4.1 MMOL/L (3.5-5.1); SODIUM 144 MMOL/L (135-145); TOTAL CARBON DIOXIDE 27.2 MMOL/L (24-32); TOTAL PROTEIN 6.9 G/DL (6.4-8.2); eGFR 43 ML/MIN
[2020-09-22 17:14] LABS: CHOL/HDL RATIO 1.9 (0.00-4.99); CHOLESTEROL 169 MG/DL (0-200); HDL CHOLESTEROL 87 MG/DL (35-60); LDL CHOLESTEROL 71 MG/DL (50-100); TRIGLYCERIDES 88 MG/DL (20-135)
== END 2020-09-22 23:59 | disposition home or self-care (01) ==
LOC: 64 CT 16:07
PROVIDERS: ATTEND Family Medicine
DX: Z00.00 Encounter for general adult medical examination without abnormal findings (principal); J33.8 Other polyp of sinus; J32.8 Other chronic sinusitis; I70.8 Atherosclerosis of other arteries
CPT/HCPCS: 36415; 70486; 80053; 80061; 81003; 84439; 84443; 85025

== ENCOUNTER 2020-10-05 10:33 | Emergency (ER) | payer BC ==
[~2020-10-05] VITALS: Ht 170.2 cm; Wt 75.9 kg
[2020-10-05 10:36] VITALS: BP 142/101
[2020-10-05] MEDS ORDERED: acetaminophen 325mg tablet PO ONE ×2 (12:40→12:45)
== END 2020-10-05 17:00 | disposition home or self-care (01) ==
LOC: EEVIPCON 10:34 → ER 10:34
DX: S49.91XA Unspecified injury of right shoulder and upper arm, initial encounter (principal); M54.2 Cervicalgia; M54.9 Dorsalgia, unspecified; G89.29 Other chronic pain; M79.7 Fibromyalgia; M19.90 Unspecified osteoarthritis, unspecified site; Z98.890 Other specified postprocedural states; Z72.89 Other problems related to lifestyle; Z79.899 Other long term (current) drug therapy; V99.XXXA Unspecified transport accident, initial encounter; Y93.89 Activity, other specified; Y92.488 Other paved roadways as the place of occurrence of the external cause; Y99.8 Other external cause status
CPT/HCPCS: 76881; 99284

== ENCOUNTER 2020-10-12 08:54 | Outpatient (CLI) | payer BC | END 2020-10-12 23:59 | disposition home or self-care (01) | LOC: RAD 08:54 | PROVIDERS: ATTEND Family Medicine | DX: S46.211A Strain of muscle, fascia and tendon of other parts of biceps, right arm, initial encounter (principal); X58.XXXA Exposure to other specified factors, initial encounter; Y93.89 Activity, other specified; Y92.89 Other specified places as the place of occurrence of the external cause; Y99.8 Other external cause status | CPT/HCPCS: 73221 ==

== ENCOUNTER → 2020-12-26 | Outpatient (CLI) | payer BC ==
[2020-12-26 15:46] LABS: BASOPHILS # (AUTO) 0.1 X10'3 (0-0.2); BASOPHILS % (AUTO) 0.9 % (0-1); EOSINOPHILS # (AUTO) 0.5 X10'3 (0-0.9); EOSINOPHILS % (AUTO) 6.9 % (0-6); HEMATOCRIT 41.8 % (42.0-52.0); HEMOGLOBIN 14.2 g/dl (14.0-17.9); LYMPHOCYTES # (AUTO) 1.8 X10'3 (1.1-4.8); LYMPHOCYTES % (AUTO) 22.5 % (21-51); MEAN CORPUSCULAR VOLUME 100.1 FL (78-98); MEAN PLATELET VOLUME 7.8 FL (7.4-10.4); MONOCYTES # (AUTO) 0.8 X10'3 (0-0.9); MONOCYTES % (AUTO) 10.3 % (2-12); NEUTROPHILS # (AUTO) 4.6 X10'3 (1.8-7.7); NEUTROPHILS % (AUTO) 59.4 % (42-75); PLATELET COUNT 237 X10'3 (140-440); RED BLOOD COUNT 4.18 X10'6 (4.70-6.10); RED CELL DISTRIBUTION WIDTH 12.6 % (11.5-14.5); WHITE BLOOD COUNT 7.8 X10'3 (4.5-11.0)
== END | disposition home or self-care (01) ==
LOC: LAB 14:00
PROVIDERS: ATTEND Family Medicine
DX: E34.9 Endocrine disorder, unspecified (principal); E03.9 Hypothyroidism, unspecified
CPT/HCPCS: 36415; 84402; 84403; 84439; 84443; 85025

== ENCOUNTER → 2020-12-26 | Outpatient (CLI) | payer BC | END | disposition home or self-care (01) | LOC: RAD 13:46 | PROVIDERS: ATTEND Neurological Surgery | DX: M47.812 Spondylosis without myelopathy or radiculopathy, cervical region (principal); M48.02 Spinal stenosis, cervical region; M51.26 Other intervertebral disc displacement, lumbar region; M25.78 Osteophyte, vertebrae; M96.1 Postlaminectomy syndrome, not elsewhere classified | CPT/HCPCS: 72141; 72148 ==

== ENCOUNTER 2021-12-07 08:52 | Outpatient (CLI) | payer OTHER ==
[2021-12-07 09:18] LABS: BASOPHILS # (AUTO) 0.1 X10'3 (0-0.2); BASOPHILS % (AUTO) 1.3 % (0-1); CLARITY,URINE CLEAR (Clear); COLOR,URINE YELLOW (Yellow); EOSINOPHILS # (AUTO) 0.4 X10'3 (0-0.9); EOSINOPHILS % (AUTO) 6.2 % (0-6); GLUCOSE, URINE NEGATIVE (Neg); HEMATOCRIT 40.6 % (42.0-52.0); HEMOGLOBIN 13.9 g/dl (14.0-17.9); KETONES,URINE NEGATIVE (Neg); LEUKOCYTE ESTERASE ,URINE NEGATIVE (Neg); LYMPHOCYTES # (AUTO) 1.9 X10'3 (1.1-4.8); LYMPHOCYTES % (AUTO) 27.3 % (21-51); MEAN CORPUSCULAR HEMOGLOBIN 33.4 PG (27.0-31.0); MEAN CORPUSCULAR HGB CONC 34.3 g/dL (33.0-36.5); MEAN CORPUSCULAR VOLUME 97.2 FL (78-98); MEAN PLATELET VOLUME 7.4 FL (7.4-10.4); MONOCYTES # (AUTO) 0.7 X10'3 (0-0.9); MONOCYTES % (AUTO) 9.6 % (2-12); NEUTROPHILS # (AUTO) 3.9 X10'3 (1.8-7.7); NEUTROPHILS % (AUTO) 55.6 % (42-75); NITRITES, URINE NEGATIVE (Neg); OCCULT BLOOD,URINE NEGATIVE (Neg); PH,URINE 5.5 (4.8-8.0); PLATELET COUNT 253 X10'3 (140-440); PROTEIN,URINE NEGATIVE (Neg); RED BLOOD COUNT 4.18 X10'6 (4.70-6.10); RED CELL DISTRIBUTION WIDTH 13.3 % (11.5-14.5); UA COLLECTION TYPE NON-SPECIFIED; UROBILINOGEN,URINE 0.2 E.U/dL (0.2-1.0)
[2021-12-07 09:37] LABS: ALANINE AMINOTRANSFERASE 34 U/L (12-78); ALBUMIN 3.5 G/DL (3.4-5.0); ALBUMIN/GLOBULIN RATIO 1.1 (1.1-1.5); ALKALINE PHOSPHATASE 50 IU/L (46-116); ANION GAP 6 (8-16); ASPARTATE AMINO TRANSFERASE 29 U/L (10-37); BILIRUBIN,TOTAL 0.4 MG/DL (0.1-1.0); BLOOD UREA NITROGEN 25 MG/DL (7-18); BUN/CREATININE RATIO 21.4 (5.4-32.0); CALCIUM 8.5 MG/DL (8.5-10.1); CHLORIDE 108 MMOL/L (99-107); CREATININE 1.17 MG/DL (0.60-1.10); GLUCOSE 66 MG/DL (70-104); POTASSIUM 4.3 MMOL/L (3.5-5.1); SODIUM 144 MMOL/L (135-145); TOTAL CARBON DIOXIDE 29.7 MMOL/L (24-32); TOTAL PROTEIN 6.7 G/DL (6.4-8.2); eGFR 64 ML/MIN
[2021-12-07 09:47] LABS: CHOL/HDL RATIO 2.5 (0.00-4.99); CHOLESTEROL 196 MG/DL (0-200); HDL CHOLESTEROL 78 MG/DL (35-60); LDL CHOLESTEROL 97 MG/DL (50-100); TRIGLYCERIDES 71 MG/DL (20-135)
== END 2021-12-07 23:59 | disposition home or self-care (01) ==
LOC: LAB 08:52
PROVIDERS: ATTEND Family Medicine
DX: Z00.01 Encounter for general adult medical examination with abnormal findings (principal)
CPT/HCPCS: 36415; 80053; 80061; 81003; 84439; 84443; 85025

== ENCOUNTER 2022-05-18 09:53 | Outpatient (CLI) | payer OTHER | END 2022-05-18 23:59 | disposition home or self-care (01) | LOC: RAD 09:53 | PROVIDERS: ATTEND Orthopaedic Surgery | DX: M51.26 Other intervertebral disc displacement, lumbar region (principal); M47.816 Spondylosis without myelopathy or radiculopathy, lumbar region; M48.061 Spinal stenosis, lumbar region without neurogenic claudication; M79.2 Neuralgia and neuritis, unspecified; M79.7 Fibromyalgia; Z98.1 Arthrodesis status; Z98.890 Other specified postprocedural states | CPT/HCPCS: 72131 ==

== ENCOUNTER → 2024-04-21 | Outpatient (CLI) | payer MEDICARE, MEDICAID | END | disposition home or self-care (01) | LOC: MRI02 16:11 | PROVIDERS: ATTEND Neurological Surgery | DX: M51.369 Other intervertebral disc degeneration, lumbar region without mention of lumbar back pain or lower extremity pain (principal); M48.061 Spinal stenosis, lumbar region without neurogenic claudication; M54.9 Dorsalgia, unspecified; Z98.1 Arthrodesis status | CPT/HCPCS: 72146; 72148 ==

== ENCOUNTER 2024-06-23 10:29 | Outpatient (CLI) | payer MEDICARE, MEDICAID | END 2024-06-23 23:59 | disposition home or self-care (01) | LOC: RAD 10:29 | PROVIDERS: ATTEND Family Medicine | DX: S72.302A Unspecified fracture of shaft of left femur, initial encounter for closed fracture (principal); L03.116 Cellulitis of left lower limb; X58.XXXA Exposure to other specified factors, initial encounter; Y93.89 Activity, other specified; Y92.89 Other specified places as the place of occurrence of the external cause; Y99.8 Other external cause status | CPT/HCPCS: 73700 ==

== ENCOUNTER 2024-07-13 09:51 | Outpatient (CLI) | payer MEDICARE, MEDICAID | END 2024-07-13 23:59 | disposition home or self-care (01) | LOC: RAD 09:51 | PROVIDERS: ATTEND Family Medicine | DX: Z13.6 Encounter for screening for cardiovascular disorders (principal); I70.91 Generalized atherosclerosis | CPT/HCPCS: 75571 ==

== ENCOUNTER 2024-10-20 10:15 | Outpatient (CLI) | payer MEDICARE, MEDICAID ==
[~2024-10-20 10:15] MED LIST changes: +ZOLP-679 PO; -ZOLP10TA PO
--- NOTE | 2024-10-20 11:53 | RADIOLOGY REPORT ---
CLINICAL INDICATION: LEFT HIP FRACTURE TECHNIQUE: 1 radiographic views of the pelvis and 3 views of the left hip were obtained. Comparison: None FINDINGS/IMPRESSION: There is no evidence of acute fracture or dislocation. Status post left hip arthroplasty.
== END 2024-10-20 23:59 | disposition home or self-care (01) ==
LOC: RAD 10:15
PROVIDERS: ATTEND Family Medicine
DX: S72.412A Displaced unspecified condyle fracture of lower end of left femur, initial encounter for closed fracture (principal); Z96.642 Presence of left artificial hip joint; Y93.89 Activity, other specified; Y92.89 Other specified places as the place of occurrence of the external cause; Y99.8 Other external cause status; X58.XXXA Exposure to other specified factors, initial encounter
CPT/HCPCS: 73502